=== PATIENT | female | born 1985 | race Caucasian/White ===

== ENCOUNTER 2017-04-17 15:59 | Outpatient (CLI) | payer BC ==
[~2017-04-17 15:59] MED LIST: Gadobenate Dimeglumine 529 MG/1 ML (20ML VIAL) ONE
--- NOTE | 2017-04-17 20:14 | MRI ---
PRE AND POSTCONTRAST ENHANCED MRI IMAGES OF BRAIN AND PITUITARY: 04/17/17 HISTORY: 31-year-old female with history of headache for one year. Elevated prolactin level. Hyperprolactinemia, E22.1. Multiplanar and multisequence pre and postcontrast enhanced MRI images of the brain and pituitary gla nd is obtained. There is moderate degree of left maxillary sinus mucosal thickening and mucous retention cysts. Moder ate left ethmoid sinus mucosal thickening is also present. The sphenoid sinuses and frontal sinuses a re well aerated. Small amount of fluid seen in the right mastoid air cells. The brain is unremarkable. No evidence of intracranial masses, hemorrhages, or strokes seen. Ventricl es are of normal size. The pituitary gland is unremarkable. No evidence of pituitary masses or lesion s seen. The pituitary stalk is midline. It has a normal contour. IMPRESSION: 1. Paranasal sinus disease. 2. No evidence of acute intracranial masses or lesions seen. The pituitary gland is unremarkable . POS: [facility]
== END 2017-04-17 16:00 | disposition home or self-care (01) ==
LOC: MRI 15:59
PROVIDERS: ATTEND Family Medicine
DX: R51 Headache (principal); E22.1 Hyperprolactinemia; J32.9 Chronic sinusitis, unspecified
CPT/HCPCS: 70553

== ENCOUNTER 2020-05-27 10:12 | Outpatient (CLI) | payer BC ==
--- NOTE | 2020-05-27 10:58 | MMO ---
Bilateral MAMMO Bilat Diag [facility]. CLINICAL HISTORY: Patient is 35 years old and is seen for diagnostic exam. The patient has no family history of breast cancer. The patient has no personal history of cancer. VIEWS: The views performed were: bilateral craniocaudal with tomosynthesis; bilateral mediolateral oblique with tomosynthesis; and bilateral mediolateral with tomosynthesis. FILMS COMPARED: The present examination has been compared to prior imaging studies performed at [facility] on 05/27/2020, and at [facility] on 05/25/2016. This study has been interpreted with the assistance of computer-aided detection. MAMMOGRAM FINDINGS: There are scattered fibroglandular densities. There are no suspicious masses, suspicious calcifications, or new areas of architectural distortion. There are no mammographic or sonographic abnormalities in the area of palpable concern. The patient is referred back to her clinician. Negative imaging findings should not preclude biopsy if clinical findings are suspicious. IMPRESSION: THERE ARE NO MAMMOGRAPHIC OR SONOGRAPHIC ABNORMALITIES IN THE AREA OF PALPABLE CONCERN. THE PATIENT IS REFERRED BACK TO HER CLINICIAN. NEGATIVE IMAGING FINDINGS SHOULD NOT PRECLUDE BIOPSY IF CLINICAL FINDINGS ARE SUSPICIOUS. THE RESULTS OF THIS EXAM WERE SENT TO THE PATIENT. ACR BI-RADS Category 1 - Negative MAMMOGRAPHY NOTE: 1. A negative mammogram report should not delay a biopsy if a dominant of clinically suspicious mass is present. 2. Approximately 10% to 15% of breast cancers are not detected by mammography. 3. Adenosis and dense breasts may obscure an underlying neoplasm. Reported by: DANIEL TY MD Electonically Signed: [id number]
--- NOTE | 2020-05-27 11:07 | ULT ---
EXAM: US Breast Limited Lt PROVIDED CLINICAL HISTORY: Left breast palpable abnormality COMPARISON: Concurrently performed diagnostic mammogram FINDINGS: Limited sonographic interrogation was performed of the left breast in the region of palpable concern at 12:00. The sonographic appearance of the breast tissue in this region is normal. IMPRESSION: No sonographic abnormality is evident in the region of clinical concern. Negative imaging findings sh ould not preclude further evaluation of a clinically suspicious finding. Patient is referred back to her clinician.
== END 2020-05-27 10:13 | disposition home or self-care (01) ==
LOC: BICMAMMO 10:12
PROVIDERS: ATTEND Obstetrics & Gynecology
DX: N63.20 Unspecified lump in the left breast, unspecified quadrant (principal)
CPT/HCPCS: 77066; G0279